=== PATIENT | female | born 1980 ===

== ENCOUNTER 2018-01-06 17:17 | Emergency (ER) | payer MEDICAID ==
[2018-01-06 17:18] VITALS: BMI 29.0
[2018-01-06 17:27] VITALS: TEMP 97.6
[2018-01-06] MEDS ORDERED: Sodium Chloride 0.9% 1,000 ML IV ONE (17:36)
[2018-01-06 17:53] LABS: BASO # 0.1 K/uL (0.0-0.2); BASO % 0.7 % (0.0-2.0); EOS # 0.1 K/uL (0.0-0.7); EOS % 0.6 % (0.0-4.0); LYMPH # 4.1 K/uL (1.0-4.3); LYMPH % 36.3 % (20.0-40.0); MEAN CELL VOLUME 85.8 fL (81.0-99.0); MEAN CORPUSCULAR HEMOGLOBIN 28.5 pg (27.0-31.0); MEAN CORPUSCULAR HGB CONC 33.2 g/dL (33.0-37.0); MEAN PLATELET VOLUME 9.2 fL (7.2-11.7); MONO # 0.7 K/uL (0.0-0.8); MONO % 6.4 % (0.0-10.0); NEUT # 6.3 K/uL (1.8-7.0); RBC 4.9 Mil/uL (3.80-5.20); RED CELL DISTRIBUTION WIDTH 13.3 % (11.5-14.5); WHITE BLOOD COUNT 11.2 K/uL (4.8-10.8)
[2018-01-06 18:02] LABS: HCG,QUALITATIVE URINE NEGATIVE (NEGATIVE)
[2018-01-06] MEDS ORDERED: Sodium Chloride 0.9% 1,000 ML ONE (18:02)
[2018-01-06 18:03] LABS: ALB/GLOB RATIO 1.2 (1.0-2.1); ALBUMIN 4.4 g/dL (3.5-5.0); ALT/SGPT 27 U/L (9-52); AST/SGOT 23 U/L (14-36); BLOOD UREA NITROGEN 17 mg/dL (7-17); CALCIUM 9.2 mg/dl (8.6-10.4); GFR AFRICAN-AMERICAN > 60; GFR NON-AFRICAN AMERICAN > 60
[2018-01-06 18:10] LABS: SQUAMOUS EPITHIAL 14 /hpf (0-5); URINE BACTERIA MANY (<OCC); URINE BILIRUBIN NEGATIVE (NEGATIVE); URINE BLOOD 3+ (NEGATIVE); URINE CLARITY Hazy (Clear); URINE COLOR Yellow (YELLOW); URINE GLUCOSE (UA) NORMAL (Normal); URINE LEUKOCYTE ESTERASE 1+ Leu/uL (Negative); URINE PROTEIN 1+ mg/dL (NEGATIVE); URINE UROBILINOGEN NORMAL mg/dL (0.2-1.0)
[2018-01-06 18:21] LABS: BARBITURATES, UR NEGATIVE (NEGATIVE); BENZODIAZEPINES, UR NEGATIVE (NEGATIVE); OPIATES, UR NEGATIVE (NEGATIVE); PHENCYCLIDINE, UR NEGATIVE (NEGATIVE)
--- NOTE | 2018-01-06 18:30 | C.PDOC ---
History Of Present Illness 37 year old female is brought to the ED by EMS for evaluation of near syncope. Patient was in the park with her daughter and states it was a hot summer day. Patient reports she felt like she was going to pass out. Patient denies dizziness, headache, nausea, vomit, CP, rash, SOB, diaphoresis. Time Seen by Provider: 01/06/18 17:30 Chief Complaint (Nursing): Syncope History Per: Patient History/Exam Limitations: no limitations Onset/Duration Of Symptoms: Hrs Current Symptoms Are (Timing): Still Present Activity At Onset Of Symptoms: Standing Associated Symptoms Preceding Syncopal Episode: Other (Heat) Seizure Or Post-ictal Symptoms: None Fall Associated With With Symptoms: No Severity: None Recent travel outside of the [place]: No Additional History Per: Patient Past Medical History Reviewed: Historical Data, Nursing Documentation, Vital Signs Vital Signs: Last Vital Signs Temp 97.6 F 01/06/18 17:24 Pulse 62 01/06/18 18:53 Resp 17 01/06/18 18:53 BP 121/78 01/06/18 18:53 Pulse Ox 99 01/06/18 18:53 - Medical History PMH: Arthritis, Depression Surgical History: Family History: States: Unknown Family Hx - Social History Hx Tobacco Use: No Hx Alcohol Use: No Hx Substance Use: No - Immunization History Hx Tetanus Toxoid Vaccination: No Hx Influenza Vaccination: No Hx Pneumococcal Vaccination: No Review Of Systems Constitutional: Negative for: Fever, Chills Cardiovascular: Negative for: Chest Pain Respiratory: Negative for: Shortness of Breath Gastrointestinal: Negative for: Nausea, Vomiting, Abdominal Pain Skin: Negative for: Rash Neurological: Negative for: Weakness, Numbness, Headache Physical Exam - Physical Exam Appears: Non-toxic, No Acute Distress, Other (obese female) Skin: Normal Color, Warm, Dry Head: Atraumatic, Normacephalic Eye(s): bilateral: Normal Inspection Oral Mucosa: Moist Neck: Normal ROM, Supple Chest: Symmetrical Cardiovascular: Rhythm Regular Respiratory: Normal Breath Sounds, No Rales, No Rhonchi, No Wheezing Gastrointestinal/Abdominal: Soft, No Tenderness, No Guarding, No Rebound Extremity: Normal ROM, No Tenderness, No Swelling Neurological/Psych: Oriented x3, Normal Speech Gait: Steady ED Course And Treatment - Laboratory Results Result Diagrams: 01/06/18 17:48 01/06/18 17:48 Lab Interpretation: Normal (UA c/w menstrual bleeding.) Urine POC: Negative ECG: Interpreted By Me ECG Rhythm: Sinus Rhythm ECG Interpretation: Normal Rate From EC O2 Sat by Pulse Oximetry: 100 (ON RA) Pulse Ox Interpretation: Normal - Radiology CXR: Interpreted by Me CXR Interpretation: Yes: No Acute Disease Reevaluation Time: 18:30 Reassessment Condition: Improved Medical Decision Making Medical Decision Making: vasovagal vs heat near-syncope (very hot 91^F and humid) while @ the park. magnified symptoms by underlying anxiety/depression. Disposition Doctor Will See Patient In The: Office Counseled Patient/Family Regarding: Studies Performed, Diagnosis - Disposition Referrals: [facility] [Outside] [facility] [Outside] [facility] [Outside] Alexandre Amaya MD [Medical Doctor] - Disposition: HOME/ ROUTINE Disposition Time: 18:31 Condition: GOOD Additional Instructions: jayme el calor kamran mas agua Sigue con espana medico o' [facility] Familiar eder necessario. Examen hoy NORMAL Instructions: Syncope (Fainting), Near Fainting (DC) Forms: [employer] (Peruvian) Print Language: VATICAN CITIZEN - Clinical Impression Clinical Impression: Near syncope - Scribe Statement The provider has reviewed the documentation as recorded by the Scribe Alfonzo Chavira All medical record entries made by the Scribe were at my direction and personally dictated by me. I have reviewed the chart and agree that the record accurately reflects my personal performance of the history, physical exam, medical decision making, and the department course for this patient. I have also personally directed, reviewed, and agree with the discharge instructions and disposition.
--- NOTE | 2018-01-06 18:38 | RAD ---
PROCEDURE: CHEST RADIOGRAPH, 1 VIEW HISTORY: SOB COMPARISON: None available. FINDINGS: LUNGS: Poor inspiration with low lung volumes, crowded bronchovascular markings and mild bibasilar atelectasis. PLEURA: No pneumothorax or pleural fluid seen. CARDIOVASCULAR: Heart size upper limits normal. OSSEOUS STRUCTURES: No significant abnormalities. VISUALIZED UPPER ABDOMEN: Normal. OTHER FINDINGS: None. IMPRESSION: Poor inspiration with low lung volumes, crowded bronchovascular markings and mild bibasilar atelectasis.
[2018-01-06 18:54] VITALS: BP 121/78; PULSE 62; RESP 17
[2018-01-06 21:03] VITALS: O2SAT 100
--- NOTE | 2018-01-08 23:24 | CARD ---
APPROVED REPORT EKG Measurement Heart [id number] <Conclusion> Sinus bradycardia Otherwise normal ECG
== END 2018-01-06 18:54 | disposition home or self-care (01) ==
LOC: C.ER 17:17
DX: R55 Syncope and collapse (principal)
CPT/HCPCS: 71045; 80053; 80320; 80324; 80345; 80346; 80349; 80353; 80358; 80361; 81001; 82948; 83992; 84484; 84703; 85025; 96360; 99285; J7030

== ENCOUNTER 2018-07-03 18:41 | Emergency (ER) | payer MEDICAID ==
[2018-07-03 18:41] VITALS: BMI 29.0
[2018-07-03 18:52] VITALS: PULSE 86; TEMP 98.5; O2SAT 98
--- NOTE | 2018-07-03 20:03 | C.PDOC ---
History Of Present Illness 37 year old female with PMHx of vertigo presents to the ED complaining of dizziness since last night. Reports one episode of vomiting last night. States she ran out of Meclizine 4 weeks ago. Denies falls, trauma or LOC. Denies any vision changes, fever, chills, chest pain, headache, shortness of breath, or any other symptoms. PMD: Dr. Alexandre Amaya Time Seen by Provider: 07/03/18 19:35 Chief Complaint (Nursing): Dizziness/Lightheaded History Per: Patient History/Exam Limitations: no limitations Onset/Duration Of Symptoms: Days (1) Current Symptoms Are (Timing): Still Present Fall Associated With With Symptoms: No Past Medical History Reviewed: Historical Data, Nursing Documentation, Vital Signs Vital Signs: Last Vital Signs Temp 98.5 F 07/03/18 18:51 Pulse 86 07/03/18 18:51 Resp 18 07/03/18 18:51 BP 126/86 07/03/18 18:51 Pulse Ox 98 07/03/18 18:51 - Medical History PMH: Arthritis, Depression Surgical History: Family History: States: No Known Family Hx - Social History Hx Tobacco Use: No Hx Alcohol Use: No Hx Substance Use: No - Immunization History Hx Tetanus Toxoid Vaccination: No Hx Influenza Vaccination: No Hx Pneumococcal Vaccination: No Review Of Systems Except As Marked, All Systems Reviewed And Found Negative. Constitutional: Negative for: Fever, Chills Cardiovascular: Negative for: Chest Pain Respiratory: Negative for: Shortness of Breath Gastrointestinal: Positive for: Vomiting. Negative for: Abdominal Pain, Diarrhea, Constipation Neurological: Positive for: Dizziness. Negative for: Headache Physical Exam - Physical Exam Additional Physical Exam Comments: General- Well appearing, Non-toxic, No acute distress Head- Normocephalic, Atraumatic Eyes- PERRL, EOMI, (Conjunctiva clear), No nystagmus Ears - Normal inspection. TM clear. Mucosa- Moist Chest- Symmetrical Cardiovascular: Rhythm Regular, No murmur, (Normal S1, S2) Resp- no wheezing, rales, or rhonchi,(Good air movement, Lungs CTA bilaterally) Abd- Soft. Nontender. No distension. No guarding, no rebound Back - no CVA tenderness Ext: Bilateral (atraumatic, normal color and temperature, no cyanosis or edema) DP pulses 2+ Neuro- Oriented x3, GCS 15, CN 2-12 intact, normal sensation, normal motor (5/5 muscle strength) Gait: steady ED Course And Treatment O2 Sat by Pulse Oximetry: 98 (RA) Pulse Ox Interpretation: Normal Medical Decision Making Medical Decision Making: Patient is now asymptomatic, denies any neurologic complaints, is ambulating well, and is tolerating PO. Patient will be discharged home on Antivert. Patient was instructed to follow up with physician/clinic, and to return to the ER in 1-2 days if no follow up can be arranged. 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 Your provider was Feli Jackman MD and you were treated for SEIZURES/HEADACHE. The emergency medical care you received today was directed at your acute symptoms. If you were prescribed any medication, please fill it and take as directed. It may take several days for your symptoms to resolve. Return to the Emergency Department if your symptoms worsen, do not improve, or if you have any other problems. Please contact your doctor in 1-2 days for follow up appointment. Bring any paperwork you were given at discharge with you along with any medications you are taking to your follow up visit. Our treatment cannot replace ongoing medical care by a primary care provider outside of the emergency department. Thank you for allowing the [facility] team to be part of your care today. Prescriptions: Meclizine [Antivert] 12.5 mg PO TID PRN #20 tab PRN Reason: Dizziness Instructions: Vertigo (a Type of Dizziness) (DC) Forms: [employer] (Kittitian), Gen Discharge Inst Kittitian Print Language: ARABIC - POA Present On Arrival: None - Clinical Impression Clinical Impression: Vertigo, Medication refill - Scribe Statement The provider has reviewed the documentation as recorded by the Scribbaljit Lopez All medical record entries made by the Scribe were at my direction and personally dictated by me. I have reviewed the chart and agree that the record accurately reflects my personal performance of the history, physical exam, medical decision making, and the department course for this patient. I have also personally directed, reviewed, and agree with the discharge instructions and disposition.
[2018-07-03 20:44] VITALS: BP 128/76; RESP 20
== END 2018-07-03 20:15 | disposition home or self-care (01) ==
LOC: C.ER 18:41
DX: Z76.0 Encounter for issue of repeat prescription (principal); R42 Dizziness and giddiness